=== PATIENT | female | born 1985 | race American Indian/Alaskan Native ===

== ENCOUNTER 2016-12-13 22:17 | Emergency (ER) | payer MEDICAID, OTHER ==
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
[2016-12-14] MEDS ORDERED: NORCO 10/325 PO ONE (03:56)
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
[2016-12-14 07:05] VITALS: BP 110/82
== END 2016-12-14 07:05 | disposition home or self-care (01) ==
LOC: ED 22:17
DX: S16.1XXA Strain of muscle, fascia and tendon at neck level, initial encounter (principal); S90.01XA Contusion of right ankle, initial encounter; S60.212A Contusion of left wrist, initial encounter; S30.1XXA Contusion of abdominal wall, initial encounter; S20.219A Contusion of unspecified front wall of thorax, initial encounter; J45.909 Unspecified asthma, uncomplicated; Z91.040 Latex allergy status; V89.2XXA Person injured in unspecified motor-vehicle accident, traffic, initial encounter; Y93.89 Activity, other specified; Y99.9 Unspecified external cause status; Y92.410 Unspecified street and highway as the place of occurrence of the external cause
CPT/HCPCS: 71250; 72125; 74176

== ENCOUNTER 2019-08-10 15:44 | Emergency (ER) | payer OTHER ==
--- NOTE | 2019-08-10 16:26 | Emergency Department Report ---
Blank Doc - Documentation Documentation: 34-year-old female that presents with right foot pain s/p fall. This initial assessment/diagnostic orders/clinical plan/treatment(s) is/are subject to change based on patient's health status, clinical progression and re- assessment by fellow clinical providers in the ED. Further treatment and workup at subsequent clinical providers discretion. Patient/guardians urged not to elope from the ED as their condition may be serious if not clinically assessed and managed. Initial orders include: 1- Patient sent to [facility] for further evaluation and treatment. 2- xrays
--- NOTE | 2019-08-10 17:25 | XRay Report ---
RIGHT FOOT 3 VIEW(S) INDICATION / CLINICAL INFORMATION: foot pain COMPARISON: Right ankle radiograph from 12/13/2016 FINDINGS: BONES / JOINT(S): Acute transverse fracture at the base of the fifth metatarsal. SOFT TISSUES: No significant abnormality. Signer Name: Mahesh Frey MD Signed: 08/10/2019 5:21 PM Workstation Name: [id number]
[2019-08-10] MEDS ORDERED: HYDROcodone/ACETAMINOPHEN 10-325MG TAB PO ONE (17:48)
[2019-08-10] MEDS ORDERED: IBUPROFEN 800 MG TAB PO ONE (17:48)
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
[2019-08-10 20:09] VITALS: BP 134/76
== END 2019-08-10 20:05 | disposition home or self-care (01) ==
LOC: EDBD → ED 15:44
DX: S92.351A Displaced fracture of fifth metatarsal bone, right foot, initial encounter for closed fracture (principal); J45.909 Unspecified asthma, uncomplicated; Z79.899 Other long term (current) drug therapy; Z91.040 Latex allergy status; W01.0XXA Fall on same level from slipping, tripping and stumbling without subsequent striking against object, initial encounter; Y93.89 Activity, other specified; Y92.89 Other specified places as the place of occurrence of the external cause; Y99.8 Other external cause status

== ENCOUNTER 2019-08-26 03:54 | Emergency (ER) | payer OTHER | END 2019-08-26 10:29 | disposition home or self-care (01) | LOC: ED 03:54 | CPT/HCPCS: 71046; 81001; 81025; 87400 ==

== ENCOUNTER 2020-03-19 15:06 | Emergency (ER) | payer OTHER ==
[2020-03-19 15:27] VITALS: BP 128/62
[2020-03-19] MEDS ORDERED: LIDOCAINE (1%) 10 MG/1 ML VIAL 20 ML MDV INFILTRATI ONE (16:39)
[2020-03-19] MEDS ORDERED: IBUPROFEN 800 MG TAB PO ONE (16:52)
[2020-03-19] MEDS ORDERED: IBUPROFEN 800 MG TAB ONE (16:54)
[2020-03-19] MEDS ORDERED: SODIUM CHLORIDE IRRI 500 ML 500 ML IR ONE (17:21)
[2020-03-19] MEDS ORDERED: NEOMY 3.5 MG/BACIT 400 UNITS/POLY B 5000 UNITS/GM OINT PACKET TP ONE (17:48)
[2020-03-19] MEDS: NEOMY 3.5 MG/BACIT 400 UNITS/POLY B 5000 UNITS/GM OINT PACKET TP ONE (17:52)
[2020-03-19] MEDS ORDERED: DIPHtheria,PERTUSSIS(ACELL),TETANUS VACCINE/PF 0.5 ML VIAL IM ONE (17:58)
[2020-03-19] MEDS ORDERED: SODIUM CHLORIDE 0.9% IRR 500 ML BOTTLE IR ONE (18:00)
--- NOTE | 2020-03-19 18:03 | Emergency Department Report ---
- General Chief Complaint: Extremity Injury, Upper Stated Complaint: LEFT FINGER CUT Time Seen by Provider: 03/19/20 16:44 Source: patient Mode of arrival: Ambulatory Limitations: No Limitations - History of Present Illness Initial Comments: This is a 34-year-old female who cut her left finger with a kitchen knife. Unknown tetanus status. She has 2.5 cm laceration at the mid lateral side of her middle finger. She is ambidextrous. -: Sudden, minutes(s) (10 minutes prior to arrival) Location: other (Left middle finger) Extremity Location: Left: Hand Patient Tetanus UTD: No Context: accidental Associated Symptoms: pain, other (Bleeding) - Related Data Previous Rx's Medication Instructions Recorded Last Taken Type Pnv 21/Iron Ps,Heme Ppep/Folic 1 each PO QDAY #30 tablet 03/20/14 04/11/14 09:00 Rx [Prefera Ob Tablet] Baclofen 20 mg PO BID #14 tablet 12/14/16 Unknown Rx Diclofenac Sodium 75 mg PO BID #20 tablet. 12/14/16 Unknown Rx traMADoL [Ultram] 50 mg PO Q6HR PRN #14 tablet 12/14/16 Unknown Rx HYDROcodone/APAP 5-325 [[place] 1 each PO Q6HR PRN #14 tablet 08/10/19 Unknown Rx 5/325] Ibuprofen [Motrin 800 MG tab] 800 mg PO Q8HR PRN #21 tablet 08/10/19 Unknown Rx Ondansetron [Zofran Odt] 4 mg PO Q8HR PRN #14 tab.rapdis 08/10/19 Unknown Rx ALBUTEROL NEB's [Proventil 0.083% 2.5 mg IH TID PRN 30 Days #1 neb 08/26/19 Unknown Rx NEBS] Amoxicillin/Potassium Clav 1 each PO BID 10 Days #20 tablet 08/26/19 Unknown Rx [Augmentin 875-125 Tablet] Allergies Allergy/AdvReac Type Severity Reaction Status Date / Time latex Allergy Severe Swelling Verified 12/07/13 14:54 ED Review of Systems ROS: Stated complaint: LEFT FINGER CUT Other details as noted in HPI Constitutional: denies: fever, malaise Neurological: denies: numbness, paresthesias ED Past Medical Hx - Past Medical History Previous Medical History?: Yes Hx Hypertension: No Hx Congestive Heart Failure: No Hx Diabetes: No Hx Deep Vein Thrombosis: No Hx Renal Disease: No Hx Sickle Cell Disease: No Hx Seizures: No Hx Psychiatric Treatment: No Hx Asthma: Yes (childhood) Hx COPD: No Hx HIV: No - Surgical History Past Surgical History?: Yes Additional Surgical History: X 2 03/17/2014 - Social History Smoking Status: Never Smoker Substance Use Type: None - Medications Home Medications: Home Medications Medication Instructions Recorded Confirmed Last Taken Type Pnv 21/Iron Ps,Heme Ppep/Folic 1 each PO QDAY #30 tablet 03/20/14 04/14/14 04/11/14 09:00 Rx [Prefera Ob Tablet] Baclofen 20 mg PO BID #14 tablet 12/14/16 Unknown Rx Diclofenac Sodium 75 mg PO BID #20 tablet. 12/14/16 Unknown Rx traMADoL [Ultram] 50 mg PO Q6HR PRN #14 tablet 12/14/16 Unknown Rx HYDROcodone/APAP 5-325 [[place] 1 each PO Q6HR PRN #14 tablet 08/10/19 Unknown Rx 5/325] Ibuprofen [Motrin 800 MG tab] 800 mg PO Q8HR PRN #21 tablet 08/10/19 Unknown Rx Ondansetron [Zofran Odt] 4 mg PO Q8HR PRN #14 tab.rapdis 08/10/19 Unknown Rx ALBUTEROL NEB's [Proventil 0.083% 2.5 mg IH TID PRN 30 Days #1 neb 08/26/19 Unknown Rx NEBS] Amoxicillin/Potassium Clav 1 each PO BID 10 Days #20 tablet 08/26/19 Unknown Rx [Augmentin 875-125 Tablet] ED Physical Exam - General Limitations: No Limitations General appearance: alert, in no apparent distress - Head Head exam: Present: atraumatic, normocephalic - Eye Eye exam: Present: normal appearance - Respiratory Respiratory exam: Present: respiratory distress - Neurological Exam Neurological exam: Present: alert, oriented X3 - Other Other exam information: Lateral aspect at the middle phalanx of the left middle finger 2.5 cm V-shaped flap laceration subcutaneous tissue exposed no active bleeding ED Course Vital Signs 03/19/20 03/19/20 03/19/20 15:24 16:54 17:54 Temperature 98.2 F Pulse Rate 113 H Respiratory 18 18 18 Rate Blood Pressure 128/62 O2 Sat by Pulse 99 Oximetry - Laceration /Wound Repair Left Finger Wound Location: lower extremity Wound's Depth, Shape: superficial Wound Explored: clean Anesthesia: 1% Lidocaine Volume Anesthetic (ccs): 3 Suture Size/Type: 4:0, nylon Number of Sutures: 5 Sterile Dressing Applied?: Yes Progress: Digital block performed ED Medical Decision Making - Medical Decision Making On exam: Patient has full range of motion no indication of ligamentous injury. Intact sensation. Suture repair digital block. Patient did receive a Tdap booster. She will have sutures removed in 10 days. Critical care attestation.: If time is entered above; I have spent that time in minutes in the direct care of this critically ill patient, excluding procedure time. ED Disposition Clinical Impression: Finger laceration Disposition: DC-01 TO HOME OR SELFCARE Is pt being admited?: No Does the pt Need Aspirin: No Condition: Stable Additional Instructions: Please have sutures removed in 10 days. Please return to the ER if he has signs of infection including redness, drainage, severe swelling.
== END 2020-03-19 18:20 | disposition home or self-care (01) ==
LOC: ED 15:06
DX: S61.213A Laceration without foreign body of left middle finger without damage to nail, initial encounter (principal); J45.909 Unspecified asthma, uncomplicated; Z98.890 Other specified postprocedural states; Z79.1 Long term (current) use of non-steroidal anti-inflammatories (NSAID); Z79.899 Other long term (current) drug therapy; Z91.040 Latex allergy status; W26.0XXA Contact with knife, initial encounter; Y93.89 Activity, other specified; Y92.89 Other specified places as the place of occurrence of the external cause; Y99.8 Other external cause status
CPT/HCPCS: 90471; 90715; 99282; A6250

== ENCOUNTER 2020-12-20 16:08 | Outpatient (CLI) | payer OTHER ==
[2020-12-20] MEDS ORDERED: BETAMET ACET/BETAMET NA PH 6 MG/ML INJ 5 ML MDV IM SCH (17:17)
[2020-12-20 17:52] LABS: Bilirubin,Urine NEG (Negative); Blood,Urine NEG (Negative); Color,Urine Yellow (Yellow); Mucus,Urine FEW /HPF
[2020-12-20] MEDS: LACTATED RINGERS 1,000 ML IV SCH ×2 (18:25→19:34)
[2020-12-20 19:09] VITALS: BP 107/69
== END 2020-12-20 20:57 | disposition home or self-care (01) ==
LOC: TRG 16:08 → APU 16:11 → TRG 20:57
PROVIDERS: ATTEND Obstetrics & Gynecology
DX: O62.9 Abnormality of forces of labor, unspecified (principal); O09.522 Supervision of elderly multigravida, second trimester; Z3A.25 25 weeks gestation of pregnancy
CPT/HCPCS: 59025; 81001; 96360; 96361; 96372; J0702; J7120

== ENCOUNTER 2020-12-22 11:13 | Outpatient (CLI) | payer OTHER ==
[2020-12-22] MEDS ORDERED: LACTATED RINGERS 500 ML IV ONE (12:19)
[2020-12-22] MEDS ORDERED: BETAMET ACET/BETAMET NA PH 6 MG/ML INJ 5 ML MDV IM ONE (12:20)
== END 2020-12-22 12:28 | disposition home or self-care (01) ==
LOC: LABHHL 11:13 → APU 11:16 → LABHHL 12:28
PROVIDERS: ATTEND Obstetrics & Gynecology
DX: O47.02 False labor before 37 completed weeks of gestation, second trimester (principal); O09.522 Supervision of elderly multigravida, second trimester; Z3A.25 25 weeks gestation of pregnancy
CPT/HCPCS: 96372; J0702

== ENCOUNTER 2021-01-12 12:13 | Outpatient (CLI) | payer OTHER | END 2021-01-12 17:30 | disposition home or self-care (01) | LOC: LAB 12:13 → APU 16:58 → LAB 17:30 | PROVIDERS: ATTEND Advanced Practice Midwife | DX: O26.893 Other specified pregnancy related conditions, third trimester (principal); O09.523 Supervision of elderly multigravida, third trimester; Z3A.28 28 weeks gestation of pregnancy; Z67.41 Type O blood, Rh negative | CPT/HCPCS: 86850; 86900; 86901; 96372; J2790 ==

== ENCOUNTER 2021-01-25 16:51 | Outpatient (CLI) | payer OTHER ==
[2021-01-25 17:24] VITALS: BP 111/72
[2021-01-25 17:44] LABS: Bilirubin,Urine NEG (Negative); Blood,Urine NEG (Negative); Color,Urine Yellow (Yellow); Mucus,Urine 1+ /HPF; Protein,Urine <15 mg/dL mg/dL (Negative); Urobilinogen,Urine < 2.0 mg/dL (<2.0)
[2021-01-25] MEDS ORDERED: LACTATED RINGERS 1,000 ML IV SCH (18:45)
== END 2021-01-25 18:26 | disposition home or self-care (01) ==
LOC: TRG 16:51 → APU 16:52 → TRG 18:26
PROVIDERS: ATTEND Obstetrics & Gynecology
DX: O09.893 Supervision of other high risk pregnancies, third trimester (principal); Z3A.30 30 weeks gestation of pregnancy
CPT/HCPCS: 59025; 81001

== ENCOUNTER 2021-02-18 10:47 | Inpatient (IN) | payer OTHER ==
[2021-02-18] MEDS ORDERED: LACTATED RINGERS 500 ML IV ONE (11:42)
[2021-02-18] MEDS ORDERED: LACTATED RINGERS 1,000 ML IV SCH (12:00)
[2021-02-18] MEDS ORDERED: diphenhydrAMINE 50 MG CAP PO SCH (12:00)
[2021-02-18] MEDS ORDERED: NIFEdipine*For Tocolysis only* 10 MG CAPSULE PO SCH ×3 (12:00→18:00)
[2021-02-18] MEDS ORDERED: NIFEdipine*For Tocolysis only* 10 MG CAPSULE PO ONE (12:10)
[2021-02-18] MEDS ORDERED: MAGNESIUM SULFATE 40GM/1000ML 40 GM/1,000 ML BAG IV SCH (13:00)
[2021-02-18] MEDS ORDERED: MAGNESIUM SULFATE 4 GM/100 ML BAG IV ONE ×2 (13:03→13:30)
--- NOTE | 2021-02-18 13:07 | History and Physical Report ---
History of Present Illness Date of examination: 02/18/21 History of present illness: previous c/section vaginal bleeding contractions Past History Past Surgical History: section Social history: no significant social history - Obstetrical History Expected Date of Delivery: 03/31/21 Actual Gestation: 34 Week(s) 1 Day(s) : 7 Medications and Allergies Allergies Allergy/AdvReac Type Severity Reaction Status Date / Time latex Allergy Severe Swelling Verified 12/07/13 14:54 Home Medications Medication Instructions Recorded Confirmed Last Taken Type Pnv 21/Iron Ps,Heme Ppep/Folic 1 each PO QDAY #30 tablet 03/20/14 04/14/14 04/11/14 09:00 Rx [Prefera Ob Tablet] Baclofen 20 mg PO BID #14 tablet 12/14/16 Unknown Rx Diclofenac Sodium 75 mg PO BID #20 tablet. 12/14/16 Unknown Rx traMADoL [Ultram] 50 mg PO Q6HR PRN #14 tablet 12/14/16 Unknown Rx HYDROcodone/APAP 5-325 [[place] 1 each PO Q6HR PRN #14 tablet 08/10/19 Unknown Rx 5/325] Ibuprofen [Motrin 800 MG tab] 800 mg PO Q8HR PRN #21 tablet 08/10/19 Unknown Rx Ondansetron [Zofran Odt] 4 mg PO Q8HR PRN #14 tab.rapdis 08/10/19 Unknown Rx ALBUTEROL NEB's [Proventil 0.083% 2.5 mg IH TID PRN 30 Days #1 neb 08/26/19 Unknown Rx NEBS] Amoxicillin/Potassium Clav 1 each PO BID 10 Days #20 tablet 08/26/19 Unknown Rx [Augmentin 875-125 Tablet] Active Meds: Active Medications Diphenhydramine HCl (Diphenhydramine 50 Mg Cap) 50 mg PO ONCE PATTIE Stop: 02/18/21 14:00 Last Admin: 02/18/21 12:09 Dose: 50 mg Documented by: Lactated Ringer's (Lactated Ringers) 1,000 mls @ 125 mls/hr IV DIRECT PATTIE Last Admin: 02/18/21 12:55 Dose: 125 mls/hr Documented by: Morphine Sulfate (Morphine 4 Mg/1 Ml Inj) 4 mg IV Q4H PRN PRN Reason: Pain , Severe (7-10) Nifedipine (Nifedipine*For Tocolysis Only* 10 Mg Capsule) 10 mg PO Q6HR PATTIE - Vital Signs Vital signs: Vital Signs Pulse Pulse Ox 89 99 02/18/21 10:58 02/18/21 10:58 Temp Pulse Resp BP Pulse Ox 109 H 132/87 98 02/18/21 13:05 02/18/21 13:03 02/18/21 13:05 - Physical Exam Breasts: Positive: deferred Cardiovascular: Regular rate Lungs: Positive: Clear to auscultation Genitourinary (Female): Positive: normal external genitalia, normal perenium Vagina: Positive: normal moisture Uterus: Positive: normal size, normal contour Anus/Rectum: Positive: normal perianal skin Extremities: Positive: normal Deep Tendon Reflex Grade: Normal +2 - Obstetrical FHR: category 1 Uterine Contraction Pattern: Irregular Results Result Diagrams: 02/18/21 17:49 02/18/21 17:49 All other labs normal. Assessment and Plan admission pain meds prn MGSO4 Steroids pt is non compliant and pushing with each contractions despite my warning not to push. CFM operative delivery for maternal/ indication Jennifer Simms MD
[2021-02-18] MEDS: MORPHINE 4 MG/1 ML INJ IV PRN ×2 (13:12→16:28)
[2021-02-18] MEDS ORDERED: MAGNESIUM SULFATE 40GM/1000ML 40 GM/1,000 ML BAG IV ONE (13:31)
[2021-02-18] MEDS ORDERED: CARBOPROST TROMETHAMINE 250 MCG/1 ML INJ IM ONE ×2 (17:00→17:25)
[2021-02-18] MEDS ORDERED: ceFAZolin/Water 2 GM/20 ML 2 GM/20 ML SYRINGE IV SCH (17:00)
[2021-02-18] MEDS ORDERED: WATER FOR IRRIG STERILE 1,500 ML BOTTLE IR ONE (17:15)
[2021-02-18] MEDS ORDERED: SODIUM CHLORIDE 0.9% IRR 1,500 ML BOTTLE IR ONE (17:15)
[2021-02-18] MEDS ORDERED: propofoL 200 MG/20 ML VIAL IV ONE (17:17)
[2021-02-18] MEDS ORDERED: SUCCINYLCHOLINE CHLORIDE 200 MG/10 ML INJ MDV ONE (17:18)
[2021-02-18] MEDS ORDERED: miSOPROStol 200 MCG TAB ONE (17:24)
[2021-02-18] MEDS ORDERED: OXYTOCIN DRIP 30,000 MILLIUNITS/500 ML BAG IV ONE (17:25)
[2021-02-18] MEDS ORDERED: ceFAZolin/Water 2 GM/20 ML 2 GM/20 ML SYRINGE IV ONE (17:27)
[2021-02-18] MEDS ORDERED: ONDANSETRON 4 MG/2 ML INJ ONE (17:32)
[2021-02-18] MEDS ORDERED: HYDROmorphone 1 MG/1 ML INJ ONE ×2 (17:37)
[2021-02-18] MEDS ORDERED: MIDAZOLAM 2 MG/2 ML INJ ONE (17:38)
[2021-02-18] MEDS ORDERED: PHENYLEPHRINE 10 MG/1 ML INJ SDV ONE (17:41)
[2021-02-18 18:17] LABS: Hematocrit 29.2 % (30.3-42.9); Hemoglobin 9.9 gm/dl (10.1-14.3); Mean Corpuscular HGB Conc 34 % (30-34); Mean Corpuscular Volume 74 fl (79-97); Platelet Count 227 K/mm3 (140-440); Red Blood Count 3.95 M/mm3 (3.65-5.03); Red Cell Distribution Width 18.9 % (13.2-15.2)
[2021-02-18 18:22] LABS: Bacteria,Urine 1+ /HPF (Negative); Bilirubin,Urine NEG (Negative); Blood,Urine LG (Negative); Color,Urine Yellow (Yellow); Mucus,Urine 1+ /HPF; Protein,Urine <15 mg/dL mg/dL (Negative); Urobilinogen,Urine < 2.0 mg/dL (<2.0)
[2021-02-18 18:27] LABS: Amphetamine Screen,Urine Negative; Benzodiazepines Screen,Urine Negative; Cannabinoid Screen,Urine Negative; Cocaine Screen,Urine Negative; Methadone Screen,Urine Negative
[2021-02-18 18:36] LABS: Alanine Aminotransferase 5 units/L (7-56); Uric Acid 3.8 mg/dL (3.5-7.6)
[2021-02-18 18:42] LABS: Opiate Screen,Urine Positive
[2021-02-18] MEDS ORDERED: LANOLIN/ZINC/DIMETHICONE (LANSINOH) 7 GM TP PRN (18:42)
[2021-02-18] MEDS ORDERED: WITCH HAZEL/ GLYCERIN PAD TP PRN (18:42)
[2021-02-18] MEDS ORDERED: NALOXONE 0.4 MG/1 ML INJ IV PRN (18:42)
[2021-02-18] MEDS ORDERED: ONDANSETRON 4 MG/2 ML INJ IV PRN (18:47)
[2021-02-18] MEDS ORDERED: SENNOSIDES 8.6 MG TAB PO PRN (18:47)
[2021-02-18] MEDS ORDERED: MORPHINE 4 MG/1 ML INJ IV PRN (18:47)
[2021-02-18] MEDS ORDERED: ACETAMINOPHEN 325 MG TAB PO PRN (18:47)
[2021-02-18] MEDS ORDERED: SIMETHICONE 80 MG CHEW TAB PO PRN (18:47)
[2021-02-18] MEDS ORDERED: PROMETHAZINE 25 MG RECT SUPP PR PRN (18:47)
[2021-02-18] MEDS ORDERED: OXYTOCIN DRIP 30 UNITS/500 ML BAG IV SCH (19:00)
--- NOTE | 2021-02-18 19:06 | Procedure Note ---
OB Delivery Note - Delivery Date of Delivery: 02/18/21 Surgeon: TOMMIE MONTANO - Section Preop diagnosis: nonreassuring FHR tracing, other (PPROM,SUspected placena abrutption) Postop diagnosis: same (placental abruption, uterine rupture) section procedure: repeat low transverse Disposition: PACU Complications: other (dense pelvic adhesions, uterine rupture) Narrative: Preop diagnosis: IUP at 34.1 weeks, previous section x2 with acute onset of vaginal bleeding and abdominal pain, PPROM Postop diagnosis: Same, placental abruption with uterine rupture Procedure: Emergency repeat low transverse section via Pfannenstiel incision Surgeon: Dr. Tommie Montano Anesthesia:GETA Complications denes pelvic adhesions, uterine rupture EBL 600 ml IV fluids:1000mL Urine output 150 mL, clear Drains Medeiros to gravity Findings: Viable female with weight 2359gms and 8/9 Procedure: I was called to room 2006 for PPROM with acute onset severe abdominal pain and vaginal bleeding. Patient was taken emergently to the operating room, placed in the dorsal supine position, the abdomen was splashed with Betadine and the patient prepped and draped in the usual fashion Patient then received excellent general tracheal anesthesia A Pfannenstiel skin incision was made with a scalpel taken down to the underlying structures and the fascia was incised in the midline. The incision was extended laterally with curved Cornejo scissors, the superior and inferior aspects of the fascial incisions were grasped with Theresa clamps and the rectus muscles dissected sharply. The abdomen was entered bluntly in the midline carried down inferiorly with good visualization of the bladder. The bladder blade was inserted. Exploration of the abdomen revealed extensive adhesions. Uterine incision was made sharply with a scalpel extended inferiorly and superiorly bluntly. The vertex was delivered atraumatically with no nuchal cord. The anterior shoulder delivered without complication and the remainder of the delivery was atraumatic. Spontaneous cry at delivery. The cord was then clamped and cut and baby handed to waiting NICU staff. Placenta delivered spontaneously immediately, placental abruption suspected. An intact placenta with three-vessel cord delivered manually. The uterine incision was closed with 2 layers of 0 Vicryl with excellent hemostasis. Exploration of the abdomen revealed a large uterine rupture approximately 5 cm proximal to the uterine incision. The hysterotomy was closed in 2 layers with 0 Vicryl The abdomen was then irrigated with warm normal saline. A second look at the uterine incision assured hemostasis. The peritoneum was closed with 3-0 chromic the rectus muscles approximated with 3-0 chromic and the fascia closed with 0 Vicryl in the usual fashion. The skin closed with 4-0 Monocryl. A pressure dressing was applied. All sponge needle and instrument counts were correct x2. There were no complications. Mom to the recovery area and baby to NICU in stable condition. EBL 600 mL Jennifer Montano MD - A at 1 minute: 8 at 5 minutes: 9 Infant Gender: Female (2359gms)
--- NOTE | 2021-02-18 19:18 | Anesthesia Day of Surgery ---
Anesthesia Day of Surgery - Day of Surgery Patient Examined: Yes Patient H&P Reviewed: Yes Patient is NPO: Yes Beta Blockers: Yes Cardiac Clearance: No Pulmonary Clearance: No Vincenzo's Test: N/A
--- NOTE | 2021-02-18 19:20 | Post Anesthesia Evaluation ---
- Post Anesthesia Evaluation Patient Participated: Yes Airway Patent: Yes Stable Respiratory Function: Yes Nausea/Vomiting: No Temp > 96.8F: Yes Pain Manageable: Yes Adequeate Hydration: Yes Anesthesia Complications: No Block Receding Appropriately: Not Applicable Patient on Ventilator: No
--- NOTE | 2021-02-18 19:20 | Anesthesia Consultation ---
Anesthesia Consult and Med Hx Date of service: 02/18/21 - Airway Anesthetic Teeth Evaluation: Poor ROM Head & Neck: Adequate Mental/Hyoid Distance: Adequate Mallampati Class: Class III Intubation Access Assessment: Probably Good - Pulmonary Exam CTA: Yes - Cardiac Exam Cardiac Exam: RRR - Pre-Operative Health Status ASA Pre-Surgery Classification: ASA3, Emergency Proposed Anesthetic Plan: General - Pulmonary Hx Smoking: Yes Hx Asthma: No Hx Respiratory Symptoms: No SOB: No COPD: No Home Oxygen Therapy: No Hx Pneumonia: No Hx Sleep Apnea: No - Cardiovascular System Hx Hypertension: No Hx Coronary Artery Disease: No Hx Heart Attack/AMI: No Hx Angina: No Hx Percutaneous Transluminal Coronary Angioplasty (PTCA): No Hx Cardia Arrhythmia: No Hx Pacemaker: No Hx Internal Defibrillator: No Hx Valvular Heart Disease: No Hx Heart Murmur: No Hx Peripheral Vascular Disease: No - Central Nervous System Hx Neuromuscular Disorder: No Hx Seizures: No CVA: No Hx Back Pain: Yes Hx Psychiatric Problems: No - Gastrointestinal Hx Ulcer: No Hx Gastroesophageal Reflux Disease: Yes - Endocrine Hx Renal Disease: No Hx End Stage Renal Disease: No Hx Cirrhosis: No Hx Liver Disease: No Hx Insulin Dependent Diabetes: No Hx Non-Insulin Dependent Diabetes: No Hx Thyroid Disease: No Hx Hypothyroidism: No Hx Hyperthyroidism: No - Hematic Hx Anemia: Yes Hx Sickle Cell Disease: No - Other Systems Hx Alcohol Use: No Hx Substance Use: No Hx Cancer: No Hx Obesity: Yes - Additional Comments Anesthesia Medical History Comments: csectionx3
[2021-02-18] MEDS ORDERED: KETOROLAC 30 MG/1 ML INJ IV ONE (20:33)
[2021-02-18] MEDS ORDERED: METHYLERGONOVINE MALEATE 0.2 MG/ML VIAL IM ONE (21:49)
[2021-02-19] MEDS: MORPHINE 2 MG/1 ML INJ IV PRN ×2 (01:55→07:00)
[2021-02-19] MEDS: HYDROcodone/ACETAMINOPHEN 5-325 MG TAB PO PRN ×4 (04:06→23:20)
[2021-02-19 07:30] LABS: Hematocrit 27.8 % (30.3-42.9); Hemoglobin 9.5 gm/dl (10.1-14.3)
--- NOTE | 2021-02-19 12:09 | Progress Note ---
Assessment and Plan A: /postop day 1 S/P repeat LTCS following placental abruption and uterine rupture. Anemia. P: Supplement with iron once passing gas. Encouraged patient to ambulate and drink warm liquids. Routine postop care. Subjective - Subjective Date of service: 02/19/21 Principal diagnosis: /postop day 1 S/P repeat low transverse section Interval history: Has not passed gas yet. Patient reports: voiding normally, pain well controlled, ambulating normally, no dizzy ambulation, no flatus, no bowel movement, no nauseated : doing well Objective - Vital Signs Latest vital signs: Vital Signs Temp Pulse Resp BP BP Pulse Ox 02/19/21 08:17 98.7 F 77 18 108/68 100 02/19/21 07:30 18 02/19/21 07:00 18 02/19/21 05:06 18 02/19/21 04:39 98.0 F 75 18 99/54 98 02/19/21 04:06 18 02/19/21 02:25 18 02/19/21 01:55 18 02/18/21 22:51 98.2 F 68 18 110/63 100 02/18/21 21:45 97.4 F L 78 16 112/63 98 02/18/21 21:43 75 108/62 02/18/21 21:41 83 112/63 02/18/21 21:40 74 98 02/18/21 21:35 68 100 02/18/21 21:30 78 99 02/18/21 21:28 82 112/63 02/18/21 21:25 68 99 02/18/21 21:23 78 117/72 02/18/21 21:20 73 99 02/18/21 21:18 71 118/74 02/18/21 21:15 74 98 02/18/21 21:13 67 115/72 02/18/21 21:10 71 98 02/18/21 21:08 67 112/70 02/18/21 21:05 87 98 02/18/21 21:03 77 112/69 02/18/21 21:00 68 18 117/70 98 02/18/21 20:58 68 117/70 02/18/21 20:55 73 97 02/18/21 20:53 70 119/70 02/18/21 20:50 70 98 02/18/21 20:48 75 124/72 02/18/21 20:45 78 97 02/18/21 20:43 80 119/68 02/18/21 20:40 71 98 02/18/21 20:38 69 117/68 02/18/21 20:35 74 98 02/18/21 20:34 75 122/71 02/18/21 20:30 97.4 F L 74 18 115/72 98 02/18/21 20:28 72 117/73 02/18/21 20:25 72 99 02/18/21 20:23 67 118/74 02/18/21 20:20 68 98 02/18/21 20:18 68 122/77 02/18/21 20:15 67 20 114/72 99 02/18/21 20:13 72 114/72 02/18/21 20:10 71 97 02/18/21 20:08 76 115/72 02/18/21 20:05 65 98 02/18/21 20:03 71 118/77 02/18/21 20:00 97.2 F L 70 20 115/73 98 02/18/21 19:58 64 115/73 02/18/21 19:55 65 98 02/18/21 19:53 74 114/70 02/18/21 19:50 0 F L 0 L 0 L 00/00 0 L 02/18/21 19:48 66 117/74 02/18/21 19:45 65 22 109/69 98 02/18/21 19:43 68 109/69 02/18/21 19:40 68 98 02/18/21 19:38 62 112/70 02/18/21 19:35 66 98 02/18/21 19:33 67 112/66 02/18/21 19:30 66 22 114/58 97 02/18/21 19:28 79 114/58 02/18/21 19:25 72 96 02/18/21 19:23 83 114/72 02/18/21 19:20 97.2 F L 76 20 114/67 98 02/18/21 19:18 76 114/67 02/18/21 19:15 68 98 02/18/21 19:13 75 112/67 02/18/21 19:10 0 F L 0 L 0 L 00/00 98 02/18/21 19:09 97.3 F L 73 22 114/72 96 02/18/21 19:08 75 113/68 02/18/21 19:05 79 97 02/18/21 19:03 81 111/65 02/18/21 19:00 78 20 108/65 96 02/18/21 18:58 78 108/65 02/18/21 18:55 75 98 02/18/21 18:53 75 110/68 02/18/21 18:50 83 18 112/65 99 02/18/21 18:48 71 112/65 02/18/21 18:45 77 96 02/18/21 18:43 73 110/69 02/18/21 18:40 77 18 112/67 99 02/18/21 18:38 77 112/67 02/18/21 18:35 97.7 F 75 18 100 02/18/21 18:33 74 113/65 02/18/21 18:30 74 100 02/18/21 18:25 78 99 02/18/21 18:21 83 111/66 02/18/21 18:20 82 98 02/18/21 17:13 91 H 94 02/18/21 17:11 91 H 100 02/18/21 17:06 90 99 02/18/21 17:03 71 101/56 02/18/21 17:01 70 97 02/18/21 16:56 77 97 02/18/21 16:53 81 100/58 02/18/21 16:51 68 98 02/18/21 16:50 73 94 02/18/21 16:46 74 96 02/18/21 16:43 72 101/58 02/18/21 16:41 72 97 02/18/21 16:36 76 97 02/18/21 16:33 79 139/80 02/18/21 16:31 84 99 02/18/21 16:26 91 H 98 02/18/21 16:24 89 94 02/18/21 16:21 75 98 02/18/21 16:16 74 96 02/18/21 16:11 70 95 02/18/21 16:06 76 96 19 16:01 77 99 02/18/21 15:56 72 98 21 15:51 81 96 02/18/21 15:46 78 96 02/18/21 15:43 86 93 02/18/21 15:41 87 99 02/18/21 15:36 85 98 02/18/21 15:35 82 101/62 02/18/21 15:31 86 98 02/18/21 15:26 74 98 02/18/21 15:21 80 96 02/18/21 15:16 82 99 02/18/21 15:11 88 96 02/18/21 15:06 83 97 02/18/21 15:01 79 97 02/18/21 14:57 84 94 02/18/21 14:56 85 97 02/18/21 14:51 89 96 02/18/21 14:46 90 97 02/18/21 14:41 97 H 99 02/18/21 14:36 101 H 99 02/18/21 14:31 89 97 02/18/21 14:26 89 96 02/18/21 14:25 88 94 02/18/21 14:21 86 96 02/18/21 14:16 89 98 02/18/21 14:11 92 H 96 02/18/21 14:06 95 H 96 02/18/21 14:01 90 97 02/18/21 13:56 97 H 98 02/18/21 13:35 83 98 02/18/21 13:33 88 106/64 02/18/21 13:30 93 H 97 02/18/21 13:25 89 99 02/18/21 13:20 90 98 02/18/21 13:18 100 H 120/61 02/18/21 13:15 105 H 99 02/18/21 13:10 114 H 97 02/18/21 13:05 109 H 98 02/18/21 13:03 106 H 132/87 02/18/21 13:00 98.7 F 104 H 99 02/18/21 12:55 97 H 98 02/18/21 12:50 109 H 98 02/18/21 12:48 89 122/67 87 02/18/21 12:45 83 99 02/18/21 12:40 79 99 02/18/21 12:35 72 97 02/18/21 12:32 68 95/57 02/18/21 12:30 71 98 02/18/21 12:25 67 99 02/18/21 12:20 74 98 Intake and Output 02/18/21 02/19/21 02/19/21 23:59 07:59 15:59 Intake Total 800 660 Output Total 400 600 Balance 400 60 Intake: IV 800 Oral 240 Intake, Free Water 420 Output: Urine 400 600 Indwelling Catheter 600 Other: Total, Intake Amount 240 Total, Output Amount 600 Weight 90.718 kg - Exam Cardiovascular: Present: Regular rate Lungs: Present: Clear to auscultation Abdomen: Present: normal appearance, soft, normal bowel sounds. Absent: distention, tenderness, guarding, rigidity Uterus: Present: normal, firm, fundal height below umbilicus. Absent: bogginess, tenderness Extremities: Absent: tenderness Incision: Present: dry, intact, dressed - Labs Labs: Abnormal lab results 02/18/21 02/18/21 02/18/21 Range/Units 17:49 17:49 17:49 WBC 17.3 H (4.5-11.0) K/mm3 Hgb 9.9 L (10.1-14.3) gm/dl Hct 29.2 L (30.3-42.9) % MCV 74 L (79-97) fl MCH 25 L (28-32) pg RDW 18.9 H (13.2-15.2) % Creatinine 0.4 L (0.6-1.2) mg/dL ALT 5 L (7-56) units/L Urine WBC (Auto) (0.0-6.0) /HPF Crossmatch See Detail 02/18/21 02/19/21 Range/Units Unknown 07:05 WBC (4.5-11.0) K/mm3 Hgb 9.5 L (10.1-14.3) gm/dl Hct 27.8 L (30.3-42.9) % MCV (79-97) fl MCH (28-32) pg RDW (13.2-15.2) % Creatinine (0.6-1.2) mg/dL ALT (7-56) units/L Urine WBC (Auto) 9.0 H (0.0-6.0) /HPF Crossmatch
[2021-02-19] MEDS: IBUPROFEN 800 MG TAB PO PRN ×2 (12:32→18:23)
[2021-02-19] MEDS: FERROUS SULFATE 325 MG TAB PO SCH (12:33)
[2021-02-20] MEDS: IBUPROFEN 800 MG TAB PO PRN ×3 (03:00→17:30)
[2021-02-20] MEDS: HYDROcodone/ACETAMINOPHEN 5-325 MG TAB PO PRN ×3 (07:15→23:33)
[2021-02-20 09:00] LABS: Basophils % (Auto) 0.2 % (0.0-1.8); Eosinophils # (Auto) 0.1 K/mm3 (0.0-0.4); Eosinophils % (Auto) 1.3 % (0.0-4.3); Hematocrit 23.6 % (30.3-42.9); Lymphocytes # (Auto) 1.4 K/mm3 (1.2-5.4); Lymphocytes % (Auto) 14.1 % (13.4-35.0); Mean Corpuscular HGB Conc 34 % (30-34); Mean Corpuscular Volume 75 fl (79-97); Monocytes # (Auto) 0.9 K/mm3 (0.0-0.8); Monocytes % (Auto) 9.3 % (0.0-7.3); Platelet Count 233 K/mm3 (140-440); Red Blood Count 3.15 M/mm3 (3.65-5.03); Red Cell Distribution Width 18.7 % (13.2-15.2)
[2021-02-20] MEDS: FERROUS SULFATE 325 MG TAB PO SCH (09:50)
--- NOTE | 2021-02-20 11:38 | Progress Note ---
Assessment and Plan A: POD #2 Asymptomatic Anemia P: Follow Routine Orders Continue PO FeSO4 as ordered Abdominal Binder Subjective - Subjective Date of service: 02/20/21 Principal diagnosis: /postop day 1 S/P repeat low transverse section Patient reports: appetite normal, voiding normally, pain well controlled, flatus, ambulating normally [place]: doing well, in NICU, bottle feeding (and ) Objective - Vital Signs Latest vital signs: Vital Signs Temp Pulse Resp BP BP Pulse Ox 02/20/21 09:50 16 02/19/21 23:40 97.8 F 86 20 110/75 100 02/19/21 16:10 98.0 F 78 18 107/65 99 02/19/21 12:27 97.9 F 75 18 103/69 99 Intake and Output 02/19/21 02/20/21 02/20/21 22:59 06:59 14:59 Intake Total 600 120 Output Total 600 Balance -600 600 120 Intake: Oral 600 120 Output: Urine 600 Void 600 Other: Total, Intake Amount 240 120 Total, Output Amount 500 # Voids Void 1 1 - Exam Breasts: Present: normal Cardiovascular: Present: Regular rate Lungs: Present: Clear to auscultation, Normal air movement Abdomen: Present: normal appearance, soft, normal bowel sounds Uterus: Present: normal, firm, fundal height below umbilicus Extremities: Present: normal Incision: Present: normal, dry, intact - Labs Labs: Abnormal lab results 02/20/21 Range/Units 08:37 RBC 3.15 L (3.65-5.03) M/mm3 Hgb 8.0 L (10.1-14.3) gm/dl Hct 23.6 L (30.3-42.9) % MCV 75 L (79-97) fl MCH 25 L (28-32) pg RDW 18.7 H (13.2-15.2) % [place] % (Auto) 9.3 H (0.0-7.3) % [place] # (Auto) 0.9 H (0.0-0.8) K/mm3 Seg Neutrophils % 75.1 H (40.0-70.0) %
[2021-02-20] MEDS: MAGNESIUM HYDROXIDE (MOM) ORAL LIQD UDC PO PRN (14:09)
[2021-02-21] MEDS: IBUPROFEN 800 MG TAB PO PRN ×2 (03:18→10:28)
[2021-02-21] MEDS: HYDROcodone/ACETAMINOPHEN 5-325 MG TAB PO PRN ×3 (08:38→23:25)
[2021-02-21] MEDS: FERROUS SULFATE 325 MG TAB PO SCH (10:23)
--- NOTE | 2021-02-21 14:00 | Consultation ---
History of Present Illness - Reason for Consult Consult date: 02/21/21 Reason for consult: Depression - History of Present Psychiatric Illness Linda Duarte is a 35y/o female patient who was admitted for emergency . During my evaluation with the patient she is talkative, and tearful. At times the patient does seem delusional. She says her experience at the hospital has been awful. She says she came to the hospital for "feeling like her insides were being ripped out." She says then she started bleeding. She felt like the staff was following her to the delivery room. The patient says she has a history of depression and scored low on her depression scale. She says she was being treated with zoloft and seroquel but never started them due to her p regnancy. The patient says she has 7 kids, and wanted to have 10. She says they told her that her likelihood of having children again was not good. The patient denies SI/HI. She states "I love me." She also denies any fear or feeling of endangerment for herself or anyone else. The patient states she just needed someone to talk to and sees a therapist. She denies hallucinations of any kind. PAST PSYCHIATRIC HISTORY: Diagnoses: Suicide attempts or Self-harm behavior: Denies Prior psychiatric hospitalizations denies Substance Abuse history: Denies Previous psychiatric medications tried: zoloft, seroquel Outpatient treatment: yes PAST MEDICAL HISTORY: None reported Family Psychiatric History: None reported or documented SOCIAL HISTORY Marital Status: engaged Living Arrangements: with kids and fiance Employment Status: Self employed Access to guns/weapons: None reported Education: high school History of Abuse: None reported Legal History: None REVIEW OF SYSTEMS Constitutional: Negative for weight loss ENT: Negative for stridor Respiratory: Negative for cough or hemoptysis All other systems reviewed and are negative MENTAL STATUS EXAMINATION General Appearance and Behavior: Age appropriate, fair hygiene, wearing appro priate clothes, lying in bed, good eye contact, talkative Cooperation: Participating, engaging Psychomotor Behavior: unremarkable and within normal limits Mood: sad Affect and affective range: tearful at times Thought Process: goal directed Thought Content: None Speech: Normal volume, Regular rate and rhythm, Intellectual Functioning: Average Suicidal Ideation: Denies SI Homicidal Ideation: Denies HI Hallucinations: Denies Delusions: appears to be at times Impulse Control: Impaired Insight and Judgment: Limited insight and judgment Memory: Short term memory intact Attention: Undivided attention impaired Orientation: Alert, oriented, Diagnoses: Major Depressive Disorder Treatment Plan zoloft 25mg po daily Sitter: per primary Medical: Per medical Disposition: Do not recommend acute psychiatric inpatient treatment The outfitter cabin to give the patient resources for outpatient psych, med management and CBT The patient to follow up in 7 to 14 days upon discharge Will sign off. Thank you for this consult Case staffed with Dr. Blandon Medications and Allergies Allergies Allergy/AdvReac Type Severity Reaction Status Date / Time latex Allergy Severe Swelling Verified 12/07/13 14:54 Home Medications Medication Instructions Recorded Confirmed Last Taken Type Pnv 21/Iron Ps,Heme Ppep/Folic 1 each PO QDAY #30 tablet 03/20/14 02/18/21 04/11/14 09:00 Rx [Prefera Ob Tablet] Baclofen 20 mg PO BID #14 tablet 12/14/16 02/18/21 Unknown Rx Diclofenac Sodium 75 mg PO BID #20 tablet. 12/14/16 02/18/21 Unknown Rx traMADoL [Ultram] 50 mg PO Q6HR PRN #14 tablet 12/14/16 02/18/21 Unknown Rx HYDROcodone/APAP 5-325 [[place] 1 each PO Q6HR PRN #14 tablet 08/10/19 02/18/21 Unknown Rx 5/325] Ibuprofen [Motrin 800 MG tab] 800 mg PO Q8HR PRN #21 tablet 08/10/19 02/18/21 Unknown Rx Ondansetron [Zofran Odt] 4 mg PO Q8HR PRN #14 tab.rapdis 08/10/19 02/18/21 Unknown Rx ALBUTEROL NEB's [Proventil 0.083% 2.5 mg IH TID PRN 30 Days #1 neb 08/26/19 02/18/21 Unknown Rx NEBS] Amoxicillin/Potassium Clav 1 each PO BID 10 Days #20 tablet 08/26/19 02/18/21 Unknown Rx [Augmentin 875-125 Tablet] Ibuprofen [Motrin] 600 mg PO Q8H PRN #60 tablet 02/18/21 Unknown Rx oxyCODONE /ACETAMINOPHEN [Percocet 1 tab PO Q6HR PRN #20 tablet 02/18/21 Unknown Rx 5/325] Active Meds: Active Medications Acetaminophen (Acetaminophen 325 Mg Tab) 650 mg PO Q4H PRN PRN Reason: Fever >100.5/MEREDITH Hydrocodone Bitart/Acetaminophen (Hydrocodone/Acetaminophen 5-325 Mg Tab) 1 each PO Q6H PRN PRN Reason: Pain, Moderate (4-6) Last Admin: 02/21/21 08:38 Dose: 1 each Documented by: Ferrous Sulfate (Ferrous Sulfate 325 Mg Tab) 325 mg PO QDAY PATTIE Last Admin: 02/21/21 10:23 Dose: 325 mg Documented by: Lactated Ringer's (Lactated Ringers) 1,000 mls @ 125 mls/hr IV DIRECT PATTIE Last Admin: 02/18/21 12:55 Dose: 125 mls/hr Documented by: Oxytocin/Sodium Chloride (Pitocin/Ns 30 Unit/500ml) 30 units in 500 mls @ 40 mls/hr IV TITR PATTIE; Protocol Last Admin: 02/18/21 20:00 Dose: 40 mls/hr, 40 mls/hr Documented by: Cefazolin Sodium (Ancef/Sterile Water 2 Gm/20 Ml) 2 gm in 20 mls @ 60 mls/hr IV PREOP PATTIE Ibuprofen (Ibuprofen 800 Mg Tab) 800 mg PO Q6H PRN PRN Reason: Pain, Moderate (4-6) Last Admin: 02/21/21 10:28 Dose: 800 mg Documented by: Magnesium Hydroxide (Magnesium Hydroxide (Mom) Oral Liqd Udc) 30 ml PO QHS PRN PRN Reason: Constip Unrelieved By Senna Last Admin: 02/20/21 14:09 Dose: 30 ml Documented by: Morphine Sulfate (Morphine 4 Mg/1 Ml Inj) 4 mg IV Q4H PRN PRN Reason: Pain , Severe (7-10) Last Admin: 02/18/21 16:28 Dose: 4 mg Documented by: Morphine Sulfate (Morphine 2 Mg/1 Ml Inj) 2 mg IV Q4H PRN PRN Reason: Pain, Moderate (4-6) Last Admin: 02/19/21 07:00 Dose: 2 mg Documented by: Morphine Sulfate (Morphine 4 Mg/1 Ml Inj) 4 mg IV Q4H PRN PRN Reason: Pain , Severe (7-10) Multi-Ingredient Ointment (Lanolin/Zinc/Dimethicone (Lansinoh) 7 Gm) 1 applic TP PRN PRN PRN Reason: dryness/cracking Naloxone HCl (Naloxone 0.4 Mg/1 Ml Inj) 0.1 mg IV Q2MIN PRN PRN Reason: Res Rate </= 8 or 02 SAT < 92% Nifedipine (Nifedipine*For Tocolysis Only* 10 Mg Capsule) 10 mg PO Q6HR PATTIE Ondansetron HCl (Ondansetron 4 Mg/2 Ml Inj) 4 mg IV Q8H PRN PRN Reason: Nausea And Vomiting Promethazine HCl (Promethazine 25 Mg Rect Supp) 25 mg OK Q6H PRN PRN Reason: N/V IF NPO AND NO IV ACCESS Senna (Sennosides 8.6 Mg Tab) 17.2 mg PO QHS PRN PRN Reason: Constipation Simethicone (Simethicone 80 Mg Chew Tab) 80 mg PO Q6H PRN PRN Reason: Gas pain Witch Vangie/Glycerin (Witch Vangie/ Glycerin Pad) 1 each TP PRN PRN PRN Reason: Hemorrhoids/cleansing/soothing Mental Status Exam - Vital signs Last Vital Signs Temp 98.1 F 02/21/21 07:15 Pulse 89 02/21/21 07:15 Resp 18 02/21/21 07:15 BP 114/87 02/21/21 07:15 Pulse Ox 96 02/21/21 07:15 Results Result Diagrams: 02/20/21 08:37 02/18/21 17:49 All other labs normal.
[2021-02-21] MEDS: MAGNESIUM HYDROXIDE (MOM) ORAL LIQD UDC PO PRN (18:21)
--- NOTE | 2021-02-21 20:34 | Progress Note ---
Subjective - Subjective Date of service: 02/21/21 Principal diagnosis: /postop day 1 S/P repeat low transverse section Interval history: stable ambulatory tolerating PO +ve flatus PE: incision c/d/i plan to continue routine postop care Jennifer Simms MD Objective - Vital Signs Vital Signs: Vital Signs - 12hr 02/21/21 18:42 Temperature 98.3 F Pulse Rate 82 Respiratory 20 Rate Blood Pressure 112/70 O2 Sat by Pulse 97 Oximetry - Labs Labs: Abnormal Labs 02/18/21 02/18/21 02/18/21 17:49 17:49 17:49 WBC 17.3 H RBC Hgb 9.9 L Hct 29.2 L MCV 74 L MCH 25 L RDW 18.9 H Garden % (Auto) Garden # (Auto) Seg Neutrophils % Creatinine 0.4 L ALT 5 L Urine WBC (Auto) Crossmatch See Detail 02/18/21 02/19/21 02/20/21 Unknown 07:05 08:37 WBC RBC 3.15 L Hgb 9.5 L 8.0 L Hct 27.8 L 23.6 L MCV 75 L MCH 25 L RDW 18.7 H Garden % (Auto) 9.3 H Garden # (Auto) 0.9 H Seg Neutrophils % 75.1 H Creatinine ALT Urine WBC (Auto) 9.0 H Crossmatch Laboratory Results - last 24 hr 02/19/21 07:05 Blood Type O NEGATIVE Antibody Screen Negative KB % Cells Negative
[2021-02-21] MEDS: SERTRALINE 25 MG TAB PO SCH (21:40)
[2021-02-21] MEDS ORDERED: diphenhydrAMINE 50 MG CAP PO ONE (23:45)
[2021-02-21] MEDS ORDERED: diphenhydrAMINE 50 MG CAP PO NR (23:50)
[2021-02-22] MEDS ORDERED: diphenhydrAMINE 50 MG CAP PO ONE (03:00)
[2021-02-22] MEDS: HYDROcodone/ACETAMINOPHEN 5-325 MG TAB PO PRN ×2 (04:55→10:21)
[2021-02-22] MEDS: IBUPROFEN 800 MG TAB PO PRN ×2 (06:54→12:49)
[2021-02-22] MEDS: SERTRALINE 25 MG TAB PO SCH (10:21)
[2021-02-22] MEDS: FERROUS SULFATE 325 MG TAB PO SCH (10:21)
--- NOTE | 2021-02-22 13:37 | Progress Note ---
Assessment and Plan A: POD #4 Asymptomatic Anemia Major Depression Cracked Nipples P: Follow Routine Orders Continue PO FeSO4 as ordered Continue Zoloft 25mg PO qd Outpatient counseling Lasinoh Cream D/C home today RTO in one week Subjective - Subjective Date of service: 02/22/21 Principal diagnosis: /postop day 1 S/P repeat low transverse section Patient reports: appetite normal, voiding normally, pain well controlled, flatus, ambulating normally, other (Denies SI) [place]: doing well Objective - Vital Signs Latest vital signs: Vital Signs Temp Pulse Resp BP BP Pulse Ox 02/22/21 08:00 97.7 F 68 20 98/63 02/22/21 07:30 18 02/22/21 06:54 18 02/22/21 05:55 18 02/22/21 04:55 18 02/22/21 00:25 18 02/21/21 23:25 18 02/21/21 23:16 98.3 F 81 20 117/65 98 02/21/21 18:42 98.3 F 82 20 112/70 97 Intake and Output 02/21/21 02/22/21 02/22/21 22:59 06:59 14:59 Intake Total 240 840 240 Balance 240 840 240 Intake: Oral 240 240 Intake, Free Water 240 600 Other: Total, Intake Amount 240 240 # Voids Void 1 1 1 - Exam Breasts: Present: nipple abnormal (cracked) Cardiovascular: Present: Regular rate Lungs: Present: Clear to auscultation Abdomen: Present: normal appearance Uterus: Present: normal, firm, fundal height below umbilicus Extremities: Present: normal Incision: Present: normal, dry, intact
--- NOTE | 2021-02-22 13:38 | Discharge Summary ---
Providers - Providers Date of Admission: 02/18/21 13:17 Date of discharge: 02/22/21 Attending physician: TOMMIE MONTANO MD 02/19/21 11:49 Consult to Case Management [CONS] Routine Services Needed at Discharge: Slot Supervisor Notified:: yes Phone number called:: [phone] Was contact made?: Yes If yes, spoke with:: Kian Medical Assistant Instructor Time called:: 13:02 Additional Physician Instructions: Positive drug screen Primary care physician: TOMMIE MONTANO MD Hospitalization Reason for admission: vaginal bleeding Delivery: Procedure: repeat low transverse Episiotomy: none Laceration: none Incision: normal, dry, intact Other procedures: none complications: none Discharge diagnosis: delivery [place] baby: male Condition at discharge: Good Disposition: DC-01 TO HOME OR SELFCARE Plan - Discharge Medications Prescriptions: Ibuprofen [Motrin] 600 mg PO Q8H PRN #60 tablet PRN Reason: Pain oxyCODONE /ACETAMINOPHEN [Percocet 5/325] 1 tab PO Q6HR PRN #20 tablet PRN Reason: Pain Sertraline [Zoloft] 25 mg PO QDAY #30 tab - Provider Discharge Summary Activity: routine, no sex for 6 weeks, no heavy lifting 4 weeks, no strenuous exercise Diet: routine Instructions: routine Additional instructions: [] Smoking cessation referral if applicable(refer to patient education folder for contact #) [] Refer to [facility] Booklet Call your doctor immediately for: * Fever > 100.5 * Heavy vaginal bleeding ( >1 pad per hour) * Severe persistent headache * Shortness of breath * Reddened, hot, painful area to leg or breast * Drainage or odor from incision. * Keep incision clean and dry at all times and follow doctor's instructions regarding bathing/showering - Follow up plan Follow up: TOMMIE MONTANO MD [Primary Care Provider] - 7 Days Forms: [facility] Discharge Summary
[2021-02-22 16:08] VITALS: BP 112/77
== END 2021-02-22 18:25 | disposition home or self-care (01) | DRG 765 ==
LOC: TRG 10:47 → APU 10:52 → TRG 13:17 → LD 13:17 → OB 22:03
PROVIDERS: ADMIT Obstetrics & Gynecology; ATTEND Obstetrics & Gynecology
PROC: 10D00Z1 Extraction of Products of Conception, Low, Open Approach (ICD-10-PCS; principal; 2021-02-18)
PROC: 30233N1 Transfusion of Nonautologous Red Blood Cells into Peripheral Vein, Percutaneous Approach (ICD-10-PCS; 2021-02-20)
DX: O76 Abnormality in fetal heart rate and rhythm complicating labor and delivery (principal); O45.93 Premature separation of placenta, unspecified, third trimester; O42.013 Preterm premature rupture of membranes, onset of labor within 24 hours of rupture, third trimester; Z3A.34 34 weeks gestation of pregnancy; Z37.0 Single live birth; Z20.822 Contact with and (suspected) exposure to COVID-19; O34.211 Maternal care for low transverse scar from previous cesarean delivery; O99.02 Anemia complicating childbirth; O99.214 Obesity complicating childbirth; E66.9 Obesity, unspecified; O99.62 Diseases of the digestive system complicating childbirth; O99.334 Smoking (tobacco) complicating childbirth; F17.200 Nicotine dependence, unspecified, uncomplicated; K21.9 Gastro-esophageal reflux disease without esophagitis; O99.345 Other mental disorders complicating the puerperium; F53.0 Postpartum depression; Z91.040 Latex allergy status; O90.0 Disruption of cesarean delivery wound; D50.0 Iron deficiency anemia secondary to blood loss (chronic)
CPT/HCPCS: 36415; 59025; 76815; 76816; 76819; 80307; 81001; 82565; 83615; 84450; 84460; 84550; 85014; 85018; 85025; 85027; 85460; 85461; 86850; 86900; 86901; 86920; 87086; 88307; 96360; 96372; G0378; J0330; J1170; J1885; J2250; J2270; J2370; J2405; J2590; J2704; J2790; J3105; J3475; J7120; P9016; U0003